=== PATIENT | male | born 1950 | race Caucasian/White ===

== ENCOUNTER → 2021-03-19 | Outpatient (CLI) | payer OTHER ==
--- NOTE | 2021-03-20 08:13 | MM ---
Reason for exam: screening (asymptomatic). Baseline mammogram. Physical Findings: Nurse Summary: nodule in the right breast at 9 o'clock areolar (nurse mj). [facility] Diagnostic Mammo w CAD CLEO Bilateral CC and MLO view(s) were taken. The breast tissue is almost entirely fat. Flame shaped density right breast. These results were verbally communicated with the patient and result sheet given to the patient on 03/19/21. ASSESSMENT: Incomplete: need additional imaging evaluation, BI-RAD 0 RECOMMENDATION: Ultrasound of the right breast.
--- NOTE | 2021-03-20 08:18 | USB ---
Reason for exam: additional evaluation requested from abnormal screening. US Breast Limited BILAT Right limited breast ultrasound including focal area of concern, retroareolar and axilla demonstrates a 2.4cm irregular, solid, hypoechoic lesion at the posterior nipple BB and a 4.9 x 5.6cm questionable lipoma at the axilla. Left limited breast ultrasound including focal area of concern, retroareolar and axilla demonstrates no cystic or solid lesion seen. Probable gynecomastia. These results were verbally communicated with the patient and result sheet given to the patient on 03/19/21. ASSESSMENT: Benign, BI-RAD 2 RECOMMENDATION: Clinical management of both breasts. Manage patient on a clinical basis.
== END | disposition home or self-care (01) ==
LOC: RADMAMWWP 14:15
DX: N63.10 Unspecified lump in the right breast, unspecified quadrant (principal); R92.8 Other abnormal and inconclusive findings on diagnostic imaging of breast; Z88.8 Allergy status to other drugs, medicaments and biological substances
CPT/HCPCS: 77066

== ENCOUNTER 2021-12-21 08:20 | Day surgery (SDC) | payer OTHER ==
[2021-12-18 11:24] VITALS: BMI 28.8
[~2021-12-21 08:20] MED LIST: LACTATED RINGERS 1,000 ML IV SCH; LIDOCAINE 1% (10MG/ML) FOR IV START INTRADERMA PRN
[2021-12-21 09:29] VITALS: TEMP 98.3
[2021-12-21 09:37] LABS: Glucose,Whole Blood 137 mg/dL (75-99)
[2021-12-21] MEDS ORDERED: PROPOFOL 10 MG/ML 20 ML VIAL IV ONE (10:03)
[2021-12-21] MEDS ORDERED: LIDOCAINE 1% INJ 10MG/ML (20 ML MDV) ONE (10:03)
--- NOTE | 2021-12-21 10:29 | P.PCN ---
Date of Procedure: 12/21/21 Procedure(s) Performed: BRIEF HISTORY: Patient is a T1-year-old pleasant [] scheduled for an elective colonoscopy as a part of evaluation of prior history of colon polyps. Last colonoscopy was 5 years ago. PROCEDURE PERFORMED: Colonoscopy with biopsy. PREOPERATIVE DIAGNOSIS: History of colon polyps. IV sedation per Anesthesia. PROCEDURE: After informed consent was obtained, the patient, was brought into the endoscopy unit. IV sedation was administered by Anesthesia under continuous monitoring. Digital rectal examination was normal. Initially the Olympus CF-160 flexible video colonoscope was then inserted in the rectum, gradually advanced into the cecum without any difficulty. Careful examination was performed as the scope was gradually being withdrawn. Ileocecal valve and the appendiceal orifice were visualized and appeared normal. Prep was fair. Mucosa of the cecum, normal. In the ascending colon there was a 4 mm sessile polyp that was removed by cold biopsy. Rest of the ascending colon, transverse colon, descending colon, sigmoid colon, and rectum appeared normal. In the proximal rectum there was a 3 mm and 5 minute a polyp that was removed by cold biopsy. Moderate sigmoid diverticulosis seen. Retroflexion was performed in the rectum and no lesions were seen. The patient tolerated the procedure well. IMPRESSION: 4 mm ascending colon polyp status post cold biopsy 3 mm and 5 mm rectal polyps status post cold biopsy Moderate sigmoid diverticulosis Small internal hemorrhoids RECOMMENDATIONS: Findings of this examination were discussed with the patient as well as his family. He was advised to follow with the biopsy results. If the biopsy reveals adenoma he can have a repeat colonoscopy in 5 years..
[2021-12-21 10:37] LABS: Glucose,Whole Blood 139 mg/dL (75-99)
[2021-12-21 11:05] VITALS: BP 119/62; PULSE 78; RESP 18
== END 2021-12-21 11:11 | disposition home or self-care (01) ==
LOC: ORWHC2ENDO 08:20
PROVIDERS: ATTEND Internal Medicine Gastroenterology
DX: Z12.11 Encounter for screening for malignant neoplasm of colon (principal); D12.8 Benign neoplasm of rectum; D12.2 Benign neoplasm of ascending colon; K57.30 Diverticulosis of large intestine without perforation or abscess without bleeding; K64.8 Other hemorrhoids; Z86.010 Personal history of colon polyps; I10 Essential (primary) hypertension; E11.9 Type 2 diabetes mellitus without complications; K21.9 Gastro-esophageal reflux disease without esophagitis; Z79.84 Long term (current) use of oral hypoglycemic drugs; Z79.82 Long term (current) use of aspirin; Z79.899 Other long term (current) drug therapy; Z79.4 Long term (current) use of insulin
CPT/HCPCS: 88305; 45380; J2001; J2704